=== PATIENT | female | born 1990 | race Caucasian/White ===

== ENCOUNTER 2023-06-10 16:31 | Emergency (ER) | payer MEDICAID ==
[~2023-06-10] VITALS: Ht 162.6 cm; Wt 94.3 kg
[2023-06-10 17:31] VITALS: BP 136/78; PULSE 70; RESP 16; TEMP 98; O2SAT 97
[2023-06-10] MEDS ORDERED: LIDOCAINE MPF 1% 10 MG/ML VIAL INJ ONE (18:20)
[2023-06-10] MEDS ORDERED: BACITRACIN OINT 500 UNITS/GM PKT TP ONE (19:15)
[2023-06-10] MEDS ORDERED: IBUP-2213 PO (19:23)
[2023-06-10] MEDS ORDERED: BACI-418 TP (19:23)
[2023-06-10] MEDS ORDERED: AMOX-999 PO (19:23)
== END 2023-06-10 19:48 | disposition home or self-care (01) ==
LOC: MED 16:31
DX: S01.511A Laceration without foreign body of lip, initial encounter (principal); X58.XXXA Exposure to other specified factors, initial encounter; Y93.89 Activity, other specified; Y92.89 Other specified places as the place of occurrence of the external cause; Y99.8 Other external cause status
CPT/HCPCS: 12011; 99282; J2001; 90715